=== PATIENT | female | born 2005 | race African-American/Black ===

== ENCOUNTER 2025-01-01 14:08 | Emergency (ER) | payer OTHER ==
[~2025-01-01] VITALS: Ht 175.3 cm; Wt 125.0 kg
[2025-01-01] VITALS (13 sets, daily range): BP systolic 98–247; BP diastolic 62–216
[2025-01-01 14:37] LABS: BASO% 0.1 % (0-3); EOS% 0.8 % (0-8); HEMATOCRIT 35.7 % (37.0-47.0); HEMOGLOBIN 10.9 g/dl (12.0-16.0); IMMATURE GRANULOCYTES 0.4 % (0.0-5.0); LYMPH% 13.5 % (15-41); MEAN CELL VOLUME 92.5 fL CALC (80.0-100.0); MEAN CORPUSCULAR HGB 28.2 pG CALC (26.0-32.0); MEAN CORPUSCULAR HGB CONC 30.5 g/dL CAL (32.0-36.0); MONO% 4.8 % (2-13); NEUT# 12.96 thou/uL (2.00-7.15); NEUT% 80.4 % (42-76); RED BLOOD COUNT 3.86 mill/uL (4.20-5.60); RED CELL DISTRI WIDTH 13.6 % (11.5-15.5)
[2025-01-01 14:53] LABS: ALBUMIN 3.6 g/dL (3.2-5.0); ALKALINE PHOSPHATASE 114 u/l (38-126); ANION GAP 19 (6-22 (CALC)); BILIRUBIN, TOTAL 0.6 mg/dL (0.02-1.3); BUN 15 mg/dL (7-17); BUN/CREATININE RATIO 21 (12-20 (CALC)); CARBON DIOXIDE 17 mmol/l (22-30); CHLORIDE 102 mmol/l (95-108); CREATININE 0.7 mg/dL (0.5-1.0); ESTIMATED GFR 127 ML/MIN (>=90 (CALC)); LIPASE 397 u/l (23-300); POTASSIUM 4.2 mmol/l (3.5-5.1); SGOT/AST 385 u/l (14-36); SODIUM 134 mmol/l (137-146); TOTAL PROTEIN 6.2 g/dL (6.3-8.2)
[2025-01-01 15:09] LABS: BETA-HCG, QUANT(RESULT NUMBER) 0 mIU/mL
[2025-01-01] MEDS ORDERED: MORPHINE SULFATE 4 MG/ML VIAL IV ONE (15:10)
[2025-01-01] MEDS ORDERED: INSULIN REGULAR (HUMAN) 100 UNIT/ML INJ IV ONE (15:10)
[2025-01-01] MEDS ORDERED: ONDANSETRON HCl 4 MG/2 ML SDV IV ONE (15:10)
[2025-01-01] MEDS ORDERED: PHENYLEPHRINE HCL 10 MG/ML VIAL IV ONE (15:15)
[2025-01-01] MEDS ORDERED: SODIUM CHLORIDE 0.9% 250 ML IV PRN (15:15)
[2025-01-01] MEDS ORDERED: NOREPINEPHRINE BITARTRATE 4 MG in DEXTROSE 5% 250 ML IV ONE (15:15)
[2025-01-01] MEDS ORDERED: SODIUM CHLORIDE 0.9% 1,000 ML IV ONE (15:15)
[2025-01-01] MEDS ORDERED: SODIUM CHLORIDE 0.9% 100 ML BAG IV ONE (15:15)
[2025-01-01] MEDS ORDERED: SODIUM CHLORIDE 0.9% 750 ML IV ONE (15:18)
[2025-01-01] MEDS ORDERED: TRANEXAMIC ACID 100 MG/ML 10ML IV ONE (15:25)
[2025-01-01] MEDS ORDERED: TRANEXAMIC ACID 1,000 MG in SODIUM CHLORIDE 0.9% 250 ML IV SCH (16:30)
== END 2025-01-01 16:15 | disposition short-term general hospital (02) | DRG 999 ==
LOC: ED 14:08
PROVIDERS: Family Medicine
PROC: 30243N1 Transfusion of Nonautologous Red Blood Cells into Central Vein, Percutaneous Approach (ICD-10-PCS; principal; 2025-01-01)
PROC: 30243N1 Transfusion of Nonautologous Red Blood Cells into Central Vein, Percutaneous Approach (ICD-10-PCS; 2025-01-01)
PROC: 30243N1 Transfusion of Nonautologous Red Blood Cells into Central Vein, Percutaneous Approach (ICD-10-PCS; 2025-01-01)
PROC: 02HV33Z Insertion of Infusion Device into Superior Vena Cava, Percutaneous Approach (ICD-10-PCS; 2025-01-01)
DX: S36.032A Major laceration of spleen, initial encounter (principal); S22.32XA Fracture of one rib, left side, initial encounter for closed fracture; E11.9 Type 2 diabetes mellitus without complications; V49.9XXA Car occupant (driver) (passenger) injured in unspecified traffic accident, initial encounter
CPT/HCPCS: J2405; P9016; Q9967